=== PATIENT | female | born 1985 | race Caucasian/White ===

== ENCOUNTER 2019-01-23 21:34 | Inpatient (IN) | payer MEDICAID, OTHER ==
[2019-01-23] MEDS: SOD CHLORIDE 0.9% 500 ML IV (21:45)
[2019-01-23] MEDS: NA BICARBONATE 8.4% 50 ML SYG IV (21:45)
[2019-01-23 21:51] LABS: ADD MAN DIFF? NO
[2019-01-23 21:58] LABS: BASOPHILS % 0.3 % (0.0-2.0); EOSINOPHILS # 0.1 10^3/ul (0.0-0.5); EOSINOPHILS % 1.2 % (0.0-7.0); HEMATOCRIT 37.9 % (37.0-47.0); HEMOGLOBIN 12.3 g/dl (12.0-16.0); LYMPHOCYTES % 25.5 % (15.0-51.0); MEAN CORPUSCULAR HEMOGLOBIN 27.1 pg (29.0-33.0); MEAN CORPUSCULAR HGB CONC 32.5 g/dl (32.0-37.0); MEAN CORPUSCULAR VOLUME 83.5 fl (82.0-101.0); MEAN PLATELET VOLUME 10.5 fl (7.4-10.4); MONOCYTE # 0.7 10^3/ul (0.3-0.9); NEUTROPHIL # 7.8 10^3/ul (1.6-7.5); NEUTROPHILS % 66.7 % (39.0-77.0); PLATELET COUNT 288 10^3/UL (140-415); RED BLOOD COUNT 4.54 10^6/ul (4.20-5.40); RED CELL DISTRIBUTION WIDTH 14.3 % (11.5-14.5)
[2019-01-23 21:58] LABS: WHITE BLOOD COUNT 11.8 10^3/ul (4.8-10.8)
[2019-01-23] MEDS ORDERED: DEXTROSE 50% 50 ML SYRINGE IV (22:00)
[2019-01-23 22:15] LABS: ALANINE AMINOTRANSFERASE 16 IU/L (13-69); ALBUMIN 3.8 g/dl (3.3-4.9); ALBUMIN/GLOBULIN RATIO 0.97; ALKALINE PHOSPHATASE 90 IU/L (42-121); ANION GAP 11 (5-13); ASPARTATE AMINO TRANSFERASE 18 IU/L (15-46); BILIRUBIN,INDIRECT 0.4 mg/dl (0-1.1); BILIRUBIN,TOTAL 0.4 mg/dl (0.2-1.3); BLOOD UREA NITROGEN 17 mg/dl (7-20); CALCIUM 8.3 mg/dl (8.4-10.2); CARBON DIOXIDE 20 mmol/L (21-31); CHLORIDE 107 mmol/L (97-110); CREATININE 0.61 mg/dl (0.44-1.00); Estimated GFR > 60 mL/min (>60); GLUCOSE 103 mg/dl (70-220); POTASSIUM 3.5 mmol/L (3.5-5.1); SODIUM 138 mmol/L (135-144); TOTAL PROTEIN 7.7 g/dl (6.1-8.1)
[2019-01-23 22:16] LABS: ADD UMIC NO; UR ASCORBIC ACID NEGATIVE (NEGATIVE); UR BILIRUBIN (Dip) NEGATIVE (NEGATIVE); UR BLOOD (Dip) NEGATIVE (NEGATIVE); UR CLARITY CLEAR (CLEAR); UR COLOR STRAW (YELLOW); UR GLUCOSE (Dip) NEGATIVE (NEGATIVE); UR KETONES (Dip) TRACE mg/dL (NEGATIVE); UR LEUKOCYTE ESTERASE (Dip) NEGATIVE Leu/ul (NEGATIVE); UR NITRITE (Dip) NEGATIVE (NEGATIVE); UR SPECIFIC GRAVITY (Dip) 1.011 (1.003-1.030); UR TOTAL PROTEIN (Dip) NEGATIVE (NEGATIVE); UR UROBILINOGEN (Dip) NEGATIVE (NEGATIVE)
[2019-01-23 22:17] LABS: ACETAMINOPHEN < 10.0 ug/ml (10.0-30.0); SALICYLATE < 1.0 mg/dl (5.0-30.0)
[2019-01-23 22:33] LABS: AMPHETAMINE/METHAMPHETAMINE Negative (NEGATIVE); BARBITURATES Negative (NEGATIVE); BENZODIAZEPINES Negative (NEGATIVE); CANNABINOIDS Negative (NEGATIVE); COCAINE Negative (NEGATIVE); OPIATES Negative (NEGATIVE)
[2019-01-24] MEDS ORDERED: DOCUSATE SODIUM 100 MG CAP PO (00:30)
[2019-01-24] MEDS ORDERED: BISACODYL (EC) 5 MG TAB PO (00:30)
[2019-01-24] MEDS ORDERED: ONDANSETRON 4 MG INJ IV ×2 (00:30)
[2019-01-24] MEDS ORDERED: ACETAMINOPHEN 325 MG TAB PO (00:30)
[2019-01-24] MEDS ORDERED: NACL 0.9% 3 ML SYG IV (00:30)
[2019-01-24] MEDS ORDERED: LORAZEPAM 2 MG INJ IV ×2 (01:00→08:00)
[2019-01-24] MEDS: SOD CHLORIDE 0.9% 1,000 ML IV ×2 (01:12→13:38)
[2019-01-24] MEDS: MULTIVITAMINS 10 ML, THIAMINE 100 MG, FOLIC ACID 1 MG in SOD CHLORIDE 0.9% 1,000 ML IVPB (02:50)
[2019-01-24] MEDS ORDERED: HALOPERIDOL 5 MG INJ IM (08:00)
[2019-01-24] MEDS: LORAZEPAM 2 MG INJ IV (16:58)
[2019-01-24] MEDS: VENLAFAXINE 75 MG TABLET PO (20:33)
[2019-01-24] MEDS: ACETAMINOPHEN 325 MG TAB PO (22:51)
[2019-01-25 06:05] LABS: ADD MAN DIFF? NO
[2019-01-25 06:07] LABS: WHITE BLOOD COUNT 9.1 10^3/ul (4.8-10.8)
[2019-01-25 06:07] LABS: BASOPHILS % 0.3 % (0.0-2.0); EOSINOPHILS # 0.1 10^3/ul (0.0-0.5); EOSINOPHILS % 1.2 % (0.0-7.0); HEMATOCRIT 35.1 % (37.0-47.0); HEMOGLOBIN 11.6 g/dl (12.0-16.0); LYMPHOCYTES # 2.8 10^3/ul (0.8-2.9); LYMPHOCYTES % 30.5 % (15.0-51.0); MEAN CORPUSCULAR HEMOGLOBIN 27.1 pg (29.0-33.0); MEAN PLATELET VOLUME 10.4 fl (7.4-10.4); MONOCYTE # 0.8 10^3/ul (0.3-0.9); MONOCYTES % 8.8 % (0.0-11.0); NEUTROPHIL # 5.3 10^3/ul (1.6-7.5); PLATELET COUNT 284 10^3/UL (140-415); RED BLOOD COUNT 4.28 10^6/ul (4.20-5.40); RED CELL DISTRIBUTION WIDTH 14.5 % (11.5-14.5)
[2019-01-25 06:42] LABS: ALANINE AMINOTRANSFERASE 18 IU/L (13-69); ALBUMIN 3.4 g/dl (3.3-4.9); ALKALINE PHOSPHATASE 77 IU/L (42-121); ANION GAP 9 (5-13); ASPARTATE AMINO TRANSFERASE 16 IU/L (15-46); BILIRUBIN,INDIRECT 0.7 mg/dl (0-1.1); BILIRUBIN,TOTAL 0.7 mg/dl (0.2-1.3); BLOOD UREA NITROGEN 10 mg/dl (7-20); CALCIUM 8.5 mg/dl (8.4-10.2); CARBON DIOXIDE 26 mmol/L (21-31); CHLORIDE 108 mmol/L (97-110); CHOL/HDL RATIO 3.7 RATIO; CHOLESTEROL 140 mg/dl (100-200); Estimated GFR > 60 mL/min (>60); GLUCOSE 99 mg/dl (70-220); HDL CHOLESTEROL 37 mg/dl (34-82); LDL CHOLESTEROL,CALCULATED 90 mg/dl; POTASSIUM 4.2 mmol/L (3.5-5.1); SODIUM 143 mmol/L (135-144); TOTAL PROTEIN 6.8 g/dl (6.1-8.1); TRIGLYCERIDES 66 mg/dl (0-149)
[2019-01-25 07:23] LABS: HEMOGLOBIN A1C 5.1 % (0-5.9)
[2019-01-25] MEDS: VENLAFAXINE 75 MG TABLET PO (09:09)
[2019-01-25 11:41] LABS: FREE T4 (FREE THYROXINE) 1.13 ng/dl (0.79-2.35)
== END 2019-01-25 16:52 | DRG 918 ==
LOC: E/R 21:34 → 6WM 01-24 00:07
PROVIDERS: Family Medicine
DX: T43.592A Poisoning by other antipsychotics and neuroleptics, intentional self-harm, initial encounter (principal); F33.2 Major depressive disorder, recurrent severe without psychotic features; Z68.41 Body mass index [BMI] 40.0-44.9, adult; T51.92XA Toxic effect of unspecified alcohol, intentional self-harm, initial encounter; T42.4X2A Poisoning by benzodiazepines, intentional self-harm, initial encounter; Y92.012 Bathroom of single-family (private) house as the place of occurrence of the external cause; E66.01 Morbid (severe) obesity due to excess calories
CPT/HCPCS: 36415; 70450; 80053; 80061; 80307; 81003; 81025; 82533; 82962; 83036; 84439; 84443; 85025; 93005; 96374; 99285-25